=== PATIENT | female | born 1965 | race Caucasian/White ===

== ENCOUNTER 2019-11-26 13:07 | Emergency (ER) | payer OTHER ==
[~2019-11-26] VITALS: Ht 167.6 cm; Wt 90.0 kg
[~2019-11-26 13:07] MED LIST: ADVAIR DISK1 INH; AMOXICILLIN500 MG OR; CEPHALEXIN500 MG OR; CLARITIN10 M1 PO; FIORICET PO; FLEXERIL PO; FLEXERIL10 MG PO; GLIPIZIDE5 M1 PO; GLUCOTROL EXTE2.5 M1 PO; HYDROCHLOROT25 MG PO; LEVOTHYROXIN75 MC1 PO; LEVOTHYROXIN88 MCG PO; LEVOTHYROXINE112 MCG PO; LORTAB5 PO; MEDDOSEPAK PO; MELOXICAM7.5 MG PO; NAPROSYN500 MG OR; NAPROSYN500 MG PO; NO MEDS; PERCOCET 5/325M1 TAB PO; PROVENTIL HFA IN; ROBITUSSIN AC OR; ROBITUSSIN AC10 ML OR; ROBITUSSIN AC10 ML PO; TRAMADOL HCL50 MG PO; ULTRAM50 M1 PO; ULTRAM50 MG PO; ZPAK PO
[2019-11-26] MEDS ORDERED: CYCLOBENZAPR5 MG PO (15:07)
[2019-11-26 15:30] VITALS: BP 94/67
== END 2019-11-26 15:30 | disposition home or self-care (01) | DRG 552 ==
LOC: ED 13:07
DX: M54.2 Cervicalgia (principal); J44.9 Chronic obstructive pulmonary disease, unspecified; E11.9 Type 2 diabetes mellitus without complications; E03.9 Hypothyroidism, unspecified; F17.200 Nicotine dependence, unspecified, uncomplicated; V59.40XA Driver of pick-up truck or van injured in collision with unspecified motor vehicles in traffic accident, initial encounter; Z79.84 Long term (current) use of oral hypoglycemic drugs

== ENCOUNTER 2020-04-01 08:01 | Day surgery (SDC) | payer OTHER ==
[~2020-04-01] VITALS: Ht 167.6 cm; Wt 99.8 kg
[~2020-04-01 08:01] MED LIST changes: +ASPIRIN 81 LOW81 MG PO; +CYCLOBENZAPR5 MG PO
[2020-04-01 11:30] VITALS: BP 115/68
== END 2020-04-01 10:58 | disposition home or self-care (01) ==
LOC: ENDO 08:01
PROVIDERS: ATTEND Surgery
DX: Z12.11 Encounter for screening for malignant neoplasm of colon (principal); K63.5 Polyp of colon; Z20.828 Contact with and (suspected) exposure to other viral communicable diseases

== ENCOUNTER 2020-04-28 23:32 | Inpatient (IN) | payer OTHER ==
[~2020-04-28] VITALS: Ht 167.6 cm; Wt 98.7 kg
--- NOTE | 2020-04-28 23:42 | NUR ---
PT ARRIVED BY EMS, WITH COMPLAINT OF ABDOMINAL PAIN. PRIOR IV INSERTION BY EMS, 20G IN RAC. PT RESTING IN ROOM WITH COMPLAINT OF SEVERE PAIN TO ABDOMEN. WILL CONTINUE TO MONITOR.
[2020-04-28 23:59] LABS: HEMOGLOBIN 14.6 g/dl (12.0-16.0); IMMATURE GRANULOCYTES 1.5 % (0.0-5.0); MEAN CELL VOLUME 98.7 fL CALC (80.0-100.0); MEAN CORPUSCULAR HGB 30.7 pG CALC (26.0-32.0); MEAN CORPUSCULAR HGB CONC 31.1 g/dL CAL (32.0-36.0); RED BLOOD COUNT 4.76 mill/uL (4.20-5.60); RED CELL DISTRI WIDTH 14.3 % (11.5-15.5)
--- NOTE | 2020-04-29 00:10 | NUR ---
PT MEDICATED FOR PAIN AND NAUSEA, IV FLUIDS STARTED. WILL REASSESS IN 30 MINS.
[2020-04-29 00:18] LABS: ALBUMIN 3.5 g/dL (3.2-5.0); ALKALINE PHOSPHATASE 114 u/l (38-126); AMYLASE 40 u/l (30-110); ANION GAP 14 (6-22 (CALC)); BUN 20 mg/dL (7-17); BUN/CREATININE RATIO 22 (12-20 (CALC)); CARBON DIOXIDE 27 mmol/l (22-30); CHLORIDE 101 mmol/l (95-108); CREATININE 0.9 mg/dL (0.5-1.0); GFR > 60 ML/MIN (>=60 (CALC)); GFR FOR AFR.AMER. > 60 ML/MIN (>=60 (CALC)); LIPASE 26 u/l (23-300); POTASSIUM 4.4 mmol/l (3.5-5.1); SGOT/AST 18 u/l (14-36); SODIUM 137 mmol/l (137-146); TOTAL PROTEIN 6.7 g/dL (6.3-8.2)
[2020-04-29 00:19] LABS: MANUAL DIFFERENTIAL YES; PLATELET COUNT 305 thou/uL (130-400)
[2020-04-29 00:21] LABS: BILIRUBIN, TOTAL 1.7 mg/dL (0.0-1.4)
[2020-04-29 00:35] LABS: BAND 1 % (0-8)
--- NOTE | 2020-04-29 02:41 | NUR ---
PT MEDICATED WITH ABX. PT ALLOWED ICE CHIPS. PT APPEARS TO BE SLEEPING. WILL CONTINUE TO MONITOR.
--- NOTE | 2020-04-29 03:19 | NUR ---
PT'S FLUIDS AND IV MEDICATIONS ARE COMPLETE. PT APPEARS TO BE SLEEPING WITHOUT S/S OF DISCOMFORT.
--- NOTE | 2020-04-29 03:25 | NUR ---
REPORT CALLED TO [facility]. MED-SURG.
[2020-04-29 03:36] VITALS: BP 93/69
--- NOTE | 2020-04-29 03:36 | NUR ---
TO FLOOR VIA STRETCHER WITH COLBY ROWE.
--- NOTE | 2020-04-29 04:26 | NUR ---
PATIENT ADMITTED FROM ER VIA STRETCHER WITH ER STAFF IN ATTENDANCE. PATIENT IS BEING ADMITTED FOR CHOLECYSTITIS. PATIENT IS AWAKE ALERT AND ORIENTEDX3. PATIENT WITH HX OF STROKE 3 YEARS AGO WITH LEFT SIDED WEAKNESS. PATIENT ALSO STATES THAT SHE DOES HAVE SOME BALANCE PROBLEMS. PATIENT DENIES ANY COVID SX. STATES THAT SHE HAS BEEN HAVING PAIN AND NAUSEA FOR LAST COUPLE OF DAYS. POOR APPETITE-NOT EATING DUE TO NAUSEA. NPO AT THIS TIME. IV SITE TO RIGHT AC-IVF NS HUNG AND INFUSING AT 125CC/HR. SITE IS HEALTHY AT THIS TIME. LAST BM WAS 04/28/20. DENIES ANY DIFFICULTY WITH URINATION. INSTRUCTED PATIENT THAT WE DO NEED UROINE SPEC WHEN SHE IS ABLE TO PROVIDE. ABD IS SOFT WITH BS+. LUNGS ARE CLEAR. PATIENT ORIENTED TO ROOM AND SURROUNDINGS. INSTRUCTED ON USE OF NURSE CALL LIGHT SYSTEM, TV REMOTE AND PHONE. SAFETY PRECAUTIONS REVIEWED WITH PATIENT. CALL LIGHT IN REACH. WILL CONT TO MONITOR.
[2020-04-29 07:24] VITALS: BP 99/65
--- NOTE | 2020-04-29 07:24 | NUR ---
PT RESTING IN BED, NO SIGNS OF DISTRESS NOTED, RESP EVEN AND UNLABORED. DISCUSSED POC, PT ALERT AND ORIENTED X3, PT IS NPO, ASSESSMENT COMPLETED, CALL LIGHT IN REACH, CONTINUE TO MONITOR.
[2020-04-29 08:10] LABS: URINE BLOOD DIPSTICK MODERATE (NEGATIVE); URINE GLUCOSE - DIPSTICK 100 mg/dL (NEGATIVE); URINE KETONE NEGATIVE (NEGATIVE); URINE LEUK ESTERASE NEGATIVE (NEGATIVE); URINE PROTEIN - DIPSTICK TRACE mg/dL (NEG-TRACE); URINE UROBILINOGEN - DIPSTICK >=8.0 E.U./dL (0.2)
[2020-04-29 08:16] LABS: URINE BILIRUBIN - DIPSTICK MODERATE (NEGATIVE); URINE COLOR DK. YELLOW; URINE NITRITE - DIPSTICK POSITIVE (Negative)
[2020-04-29 08:17] LABS: URINE BACTERIA FEW hpf; URINE EPITHELIAL CELLS FEW EPI/hpf (0-FEW)
--- NOTE | 2020-04-29 08:23 | NUR ---
CALLED MD PAPER AND PULP MILL OPERATOR AND CLARIFIED FENTANYL ORDER, NEW ORDERS RECEIVED.
--- NOTE | 2020-04-29 08:42 | NUR ---
CONSENT OBTAINED, SWABS TO MOISTEN HER MOUTH PROVIDED.
--- NOTE | 2020-04-29 09:14 | NUR ---
PT TAKEN DOWN TO OR WITH OR NURSE, CONTINUE TO MONITOR.
--- NOTE | 2020-04-29 10:00 | NUR ---
PT BROUGHT BACK TO FLOOR VIA BED ACCOMPANIED BY OR NURSE, CALL LIGHT IN REACH, WATER PROVIDED, CALL LIGHT IN REACH,CONTINUE TO MONITOR.
--- NOTE | 2020-04-29 11:38 | NUR ---
PT RESTING IN BED, MEDICATED FOR PAIN, CALL LIGHT IN REACH,CONTINUE TO MONITOR.
--- NOTE | 2020-04-29 13:01 | NUR ---
PT RESTING IN BED WITH EYES CLOSED, NO SIGNS OF DISTRESS NOTED, RESP EVEN AND UNLABORED. CALL LIGHT IN REACH,CONTINUE TO MONITOR.
[2020-04-29 14:40] VITALS: BP 95/58
--- NOTE | 2020-04-29 17:19 | NUR ---
PT SITTING ON SIDE OF BED, PT MEDICATED PER MAR. CALL LIGHT IN REACH,CONTINUE TO MONITOR.
[2020-04-29 19:00] VITALS: BP 114/73
--- NOTE | 2020-04-29 19:19 | NUR ---
PATIENT SITTING UP ON THE SIDE OF THE BED. AWAKE ALERT AND ORIENTEDX3. PATIENT WITH NO COMPLAINTS AT THIS TIME. IV SITE TO RAC INTACT WITH NS PATENT AND INFUSING 125CC/HR. SAFETY PRECAUTIONS REINFORCED. CALL LIGHT IN REACH. WILL CONT TO MONITOR.
--- NOTE | 2020-04-29 21:00 | NUR ---
PATIENT MIN ASSIST TO BR AND TOOK PRE-OP SHOWER USING ANTIBACTERIAL SCRUB. PATIENT WITH LEFT SOIDED WEAKNESS FROM PREVIOUS STROKE. BACK TO BED. CALL LIGHT IN REACH. SAFETY PRECAUTIONS REINFORCED. WILL CONT TO MONITOR.
--- NOTE | 2020-04-29 23:30 | NUR ---
PATIENT RESTING IN BED AT THIS TIME. O2 VIA NASAL CANNULA IN PLACE. IVF NS PATENT AND INFUSING AT 100CC/HR VIA RAC SITE. ZOSYN HUNG ORDERED. MEDICATED FOR RLQ PAIN WITH PERCOCET 5/325MG PO AND WITH TORADOL 15MG SCHDULED. NPO AFTER MIDNIGHT. PATIENT VERBALIZES UNDERSTANDING. SAFETY PRECAUTIONS REINFORCED. CALL LIGHT IN REACH. WILL CONT TO MONITOR.
--- NOTE | 2020-04-30 03:49 | NUR ---
PATIENT RECIEVED NEB TYREATMENT ORDERED. COUGHING UP MODERATE AMT OF THIN CLEAR SECREATIONS. PATIENT ASSIST TO THE BR-WALKS WITH LIMP TO LLE. LIMITED MOVEMENT OF LEFT HAND. VOIDED QS IN BR AND ASSISTED BACK TO THE BED. PATIENT REMAINS NPO FOR OR THIS MORNING. IVF NS PATENT AND INFUSING AVIA RAC SITE AT 100CC/HR. SITE REMAINS HEALTHY, SITTING ON THE SIDE OF THE BED WATCHING TV AT THIS TIME. CALL LIGHT IN REACH. SAFETY PRECAUTIONS REINFORCED. WILL CONT TO MONITOR.
[2020-04-30 04:00] VITALS: BP 108/74
[2020-04-30 05:31] LABS: MEAN CELL VOLUME 100.8 fL CALC (80.0-100.0); MEAN CORPUSCULAR HGB 30.6 pG CALC (26.0-32.0); MEAN CORPUSCULAR HGB CONC 30.4 g/dL CAL (32.0-36.0); RED BLOOD COUNT 3.89 mill/uL (4.20-5.60); RED CELL DISTRI WIDTH 14.6 % (11.5-15.5)
[2020-04-30 05:45] LABS: HEMATOCRIT 39.2 % (37.0-47.0); HEMOGLOBIN 11.9 g/dl (12.0-16.0)
[2020-04-30 05:47] LABS: TOTAL PROTEIN 5.8 g/dL (6.3-8.2)
[2020-04-30 05:48] LABS: BILIRUBIN, TOTAL 0.7 mg/dL (0.0-1.4)
[2020-04-30 05:50] LABS: ANION GAP 14 (6-22 (CALC)); BUN 19 mg/dL (7-17); BUN/CREATININE RATIO 33 (12-20 (CALC)); CARBON DIOXIDE 25 mmol/l (22-30); CHLORIDE 104 mmol/l (95-108); CREATININE 0.6 mg/dL (0.5-1.0); GFR > 60 ML/MIN (>=60 (CALC)); GFR FOR AFR.AMER. > 60 ML/MIN (>=60 (CALC)); MAGNESIUM 2.6 mg/dL (1.6-2.3); SODIUM 139 mmol/l (137-146)
[2020-04-30 07:45] VITALS: BP 102/63
--- NOTE | 2020-04-30 07:45 | NUR ---
PATIENT NPO AT THIS TIME ALERT AND ORIENTED. DENIES ANY PAIN CURRENTLY AT THIS TIME. 02 ON AT 3 LITERS. SIDERAILS UP X 2 CALL LIGHT WITHIN REACH. CASINO MANAGER DONE AT THIS TIME (SEE INTERVENTIONS).
--- NOTE | 2020-04-30 12:00 | NUR ---
PATIENT SITTING UP ON BEDSIDE EATING LUNCH AT THIS TIME. PATIENT STATES HER PAIN LEVEL IS A 3 OUT OF 0-10 AND WAS GIVEN 15MG TORODOL PER SCHEDULE. PATIENT DENIES ALL OTHER NEEDS AT THIS TIME. PATIENT WILL BE MADE NPO AFTER MIDNIGHT TONIGHT FOR LAP JON TOMORROW. PATIENT AWARE OF SURGERY SCHEDULE CHANGE AT THIS TIME.
[2020-04-30 15:00] VITALS: BP 99/57
--- NOTE | 2020-04-30 16:15 | NUR ---
PATIENT LAYING IN BED AT THIS TIME DENIES ANY NEEDS AND OR PAIN. PATIENT SIDERAILS ARE UP X 2 CALL LIGHT WITHIN REACH.
[2020-04-30 20:00] VITALS: BP 98/60
--- NOTE | 2020-04-30 20:02 | NUR ---
PHYSICAL ASSESMENT COMPLETE. PT CURRENTLY DENIES PAIN OR DISCOMFORT. SCHEDULED MEDICATIONS AND PRN MEDICATION ADMINISTERED, SEE E-MAR. PT DENIES ANY NEEDS AT THIS TIME. PLAN OF CARE REVIEWED, PT DENIES QUESTIONS, VERBALIZES UNDERSTANDING. ITEMS WITHIN REACH, BED LOCKED IN LOW POSITION W/ BEDRAILS UP X2. CALL LOPEZ WITHIN REACH, AGREES TO CALL PRN.
--- NOTE | 2020-04-30 21:00 | NUR ---
PT REQUESTED SLEEP AID. WILL REQUEST FROM PHYSICIAN.
[2020-05-01] VITALS (10 sets, daily range): BP systolic 88–143; BP diastolic 54–88
--- NOTE | 2020-05-01 | NUR ---
PT LAYING IN BED WITH EYES CLOSED, APPEARS TO BE SLEEPING, APPEARS COMFORTABLE AND IN NO DISTRESS. RESPIRATIONS REGULAR AND UNLABORED. ANTIBIOTIC AND SCHEDULED TORADOL PROVIDED. ITEMS REMAIN WITHIN REACH, CALL LOPEZ REMAINS WITHIN REACH. BED REMAINS LOCKED AND IN LOW POSITION WITH BEDRAILS UP X2. WILL CONTINUE TO MONITOR.
--- NOTE | 2020-05-01 04:14 | NUR ---
PT RESTING IN BED, NO SIGNS OF DISTRESS NOTED, RESP EVEN AND UNLABORED. PT VOICES NO NEEDS OR COMPLAINTS AT THIS TIME. CALL LIGHT IN REACH, CONTINUE TO MONITOR.
[2020-05-01 05:55] LABS: HEMATOCRIT 37.1 % (37.0-47.0); HEMOGLOBIN 11.3 g/dl (12.0-16.0); IMMATURE GRANULOCYTES 0.9 % (0.0-5.0); MEAN CELL VOLUME 100.8 fL CALC (80.0-100.0); MEAN CORPUSCULAR HGB 30.7 pG CALC (26.0-32.0); MEAN CORPUSCULAR HGB CONC 30.5 g/dL CAL (32.0-36.0); NEUT# 16.7 thou/uL (2.00-7.15); RED BLOOD COUNT 3.68 mill/uL (4.20-5.60); RED CELL DISTRI WIDTH 14.6 % (11.5-15.5)
[2020-05-01 06:21] LABS: ALBUMIN 2.7 g/dL (3.2-5.0); ALKALINE PHOSPHATASE 98 u/l (38-126); ANION GAP 10 (6-22 (CALC)); BUN 17 mg/dL (7-17); BUN/CREATININE RATIO 31 (12-20 (CALC)); CARBON DIOXIDE 26 mmol/l (22-30); CHLORIDE 107 mmol/l (95-108); CREATININE 0.5 mg/dL (0.5-1.0); GFR > 60 ML/MIN (>=60 (CALC)); GFR FOR AFR.AMER. > 60 ML/MIN (>=60 (CALC)); POTASSIUM 4.2 mmol/l (3.5-5.1); SGOT/AST 18 u/l (14-36); SODIUM 139 mmol/l (137-146); TOTAL PROTEIN 5.3 g/dL (6.3-8.2)
[2020-05-01 06:22] LABS: BILIRUBIN, TOTAL 0.4 mg/dL (0.0-1.4)
--- NOTE | 2020-05-01 07:00 | NUR ---
PATIENT RESTING IN BED AT THIS TIME STATES HER PAIN IS A 2 OUT OF PAIN SCALE OF 0-10. DENIES ANY OTHER NEEDS. 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 VITAL SIGNS TAKEN AND ENCEPHALOGRAPHER DONE SEE (INTERVENTIONS). 02 ON AT 2 LITERS LUNGS SOUND ARE DIMINISHED IN LOWER BOWERS. NON PRODUCTIVE COUGH (DRY) NOTED. SIDERAILS ARE UP CALL LIGHT WITHIN REACH.
--- NOTE | 2020-05-01 10:08 | NUR ---
PT IN OR CURRENTLY. NO AEROSOL NEB TX ADMINISTERED AT THIS TIME. AWARE.
--- NOTE | 2020-05-01 12:18 | NUR ---
PATIENT RETURNED FROM SURGERY WITH JAE MANE. PATIENT WAS ASSISTED BACK TO BE AT THIS TIME. PATIENT HAS 4 DERMABOND CLOSE SURGERY SITES AND 1 ESSENCE DRAIN ON THE RIGHT ABDOMINAL WALL THAT IS DRAINING RED TINGED DRAINAGE AT THIS TIME. PRIOR TO LEAVING RETAIL SALES ASSOCIATE BILINGUALJAE ASH STATED SHE EMPTIED 100 ML FROM ESSENCE DRAIN BULB. PATIENT INSTRUCTED TO CALL FOR ASSISTANCE IF SHE NEEDS TO GET UP PATIENT ALSO GIVEN ICE CHIPS AND VITAL SIGNS ARE STABLE AT THIS TIME. NALDO UNDERWOOD ARE UP X2 CALL LIGHT WITHIN REACH.
--- NOTE | 2020-05-01 13:32 | NUR ---
PATIENT GIVEN 1 OXYCODONE-ACETAMINIIOPHEN 5MG/325MG FOR PAIN IN ABDOMINAL AREA. PATIENT STATES HER PAIN IS A 6 OUT OF A SCALE OF 0-10 AT THIS TIME. PATIENT GIVEN A PILLOW FOR ABD. FOR SUPPORT AND AN INSENTIVE SPIROMETER WAS GIVEN AND PATIENT VERBALIZES UNDERSTANDING OF USE AND BENEFITS. SIDERAILS ARE UP CALL LIGHT WITHIN REACH.
--- NOTE | 2020-05-01 13:41 | NUR ---
PT REFUSED AEROSOLIZED NEB TX AT THIS TIME. STATES SHE JUST HAD PAIN MED AND IS TRYING TO NAP. "MY BREATHING IS DOING FINE RIGHT NOW". NAD. VSS. GRADUATE TEACHING ASSOCIATE TO MONITOR.
--- NOTE | 2020-05-01 14:44 | NUR ---
PATIENT RESTING IN BED AT THIS TIME ADOMINAL DERMABOND SITES REMAIN INTACT NO DRAINAGE NOTED AT THIS TIME FROM ANY OF THE FOUR SITES. ESSENCE DRAIN INTACT AND CONTINUES TO HAVE SMALL AMOUNT OF REDDISH FLUIDS COLLECTING IN BULB AT THIS TIME PATIENT STATES PAIN MEDICATIION EFFECTIVE AT THIS TIME. PAIN IS A 3 DOWN FROM A 6 LEVEL OUT OF 0-10 SCALE. SIDERAILS UP CALL LIGHT WITHIN REACH.
--- NOTE | 2020-05-01 16:07 | NUR ---
ASSISTED PATIENT UP TO BATHROOM AT THIS TIME. PATIENT VOIDED 325 ML'S OF URINE CLEAR YELLOW AT THIS TIME. PATIENT'S ESSENCE DRAIN WAS DRAINED AND 30 ML'S OF BLOODY DRAINAGE WAS EMPTIED. PATIENT THEN WALKED BACK TO SIT IN RECLINER AND ABDOMINAL AREA EXAMIED AND FOUR DERMABOND SITES ON ABDOMINAL WALL REMAIN INTACT AND WITHOUT DRAINAGE. ESSENCE DRESSING REMAINS INTACT AND DRY AT THIS TIME. PATIENT STATED PAIN LEVEL IS 3 OUT OF PAIN SCALE OF 0-10 AND STATED FEELS BETTER SITTING UP. PATIENT HANDED CALL LIGHT AND TRAY TABLE NEAR BY AND EDUCATED TO CALL FOR HELP IF SHE NEEDS TO GET UP. PATIENT VERBALIZES UNDERSTANDING.
--- NOTE | 2020-05-01 17:37 | NUR ---
15MG OF TORODOL GIVEN SCHEDULED PATIENT STATES HE PAIN IS ABOUT A "3" OUT OF A PAIN SCALE OF 0-10. PATIENT SITTING UP IN CHAIR WITH SCD'S ON AT THIS TIME EATING MEAL FROM [employer]. CHRISTY ANY PAIN. CALL LIGHT WITHIN REACH
--- NOTE | 2020-05-01 18:00 | NUR ---
PATIENT STATES PAIN CURRENTLY IS ONLY A 1-2 AND FEELS TOLERABLE. DENIES ALL OTHER NEEDS.
[2020-05-01 18:48] LABS: HEMATOCRIT 38.8 % (37.0-47.0); HEMOGLOBIN 11.6 g/dl (12.0-16.0)
--- NOTE | 2020-05-01 20:39 | NUR ---
PT MEDICATED ORDERS PROVIDE NO S/O DISTRESS NOTED. ESSENCE DRAIN MAINTAINS GOOD BULB SUCTION WITH MINIMAL RED DRAINAGE. ABD INCISION LAP SITES APPEAR CDI. PT REPORTS PAIN 5/10 ON PAIN SCALE, WILL MEDICATE FOR PAIN AND ASKING FOR SLEEP AIDE. SNACK PROVIDED PER REQUEST. ENCOURAGED TO CALL NEEDS ARISE.
--- NOTE | 2020-05-01 20:49 | NUR ---
MEDICATED FOR PAIN 5/10 ON PAIN SCALE. SHE IS WATCHING TV AND EATING A SNACK WHEN I LEFT.
--- NOTE | 2020-05-01 21:40 | NUR ---
PT CALLED TO ASK IF WE HAD ANYONE ON STAFF TO BRAID HER HAIR. WE INFORMED HER THAT WE DID NOT, BUT PROVIDED WITH RUBBERBAND. DENIES ANY OTHER NEEDS AT THIS TIME.
[2020-05-02] VITALS: BP 103/64
--- NOTE | 2020-05-02 00:22 | NUR ---
PT MEDICATED WITH IV ANTIBIOTIC THERAPY AND IV PAIN MEDICATION AT THIS TIME PER SCEDULED MEDICATIONS. PT REPORTS PAIN LEVEL 3/10 ON PAIN SCALE. SHE AMBULATED TO RESTROOM AND REPORTS PASSING GAS. PT DEMONSTRATED IS USAGE WITH BREATHS MEASURING 1000 ON IS. SHE WAS LEFT SITTING ON SIDE OF THE BED WITH LIGHTS OFF AND TV ON. DENIES ANY OTHER NEEDS. OXYGEN IS OFF, SAT LEVELS 92% ON ROOM AIR.
--- NOTE | 2020-05-02 01:37 | NUR ---
IV ANTIBIOTIC THERAPY COMPLETED AT THIS TIME. IV SITE FLUSHED WITH NS/PATENT AND APPEARS HEALTHY. PT AWAKE, WATCHING TV.
[2020-05-02 04:00] VITALS: BP 102/63
--- NOTE | 2020-05-02 04:27 | NUR ---
ASSISTED PT BACK INTO BED, SHE SELF AMBULATED TO RESTROOM. LAB WAS IN WITH PT ALSO. SCD'S PLACED BACK ON PT AND ESSENCE DRAIN EMPTIED OF 20CC OF BLOODY RED DRAINAGE. REPORTS PAIN 4/10 ON PAIN SCALE. WILL FOLLOW-UP WITH PAIN MEDICATION AND ANTIBIOTIC THERAPY.
[2020-05-02 05:19] LABS: HEMATOCRIT 36.1 % (37.0-47.0); HEMOGLOBIN 10.9 g/dl (12.0-16.0)
[2020-05-02 05:36] LABS: ALBUMIN 2.5 g/dL (3.2-5.0); BILIRUBIN, TOTAL 0.3 mg/dL (0.0-1.4); TOTAL PROTEIN 4.8 g/dL (6.3-8.2)
[2020-05-02 07:00] VITALS: BP 110/62
--- NOTE | 2020-05-02 07:00 | NUR ---
PATIENT SITTING UP IN CHAIR AT THIS TIME STATES SHE FEELS GOOD AND HER PAIN LEVEL IS A 1 AT THIS TIME. CHARU ANY NEEDS NO O2 ON AT THIS TIME. ESSENCE DRAIN PATENT AND SMALL AMOUNT NOTED IN BULB AT THIS TIME (RED BLOOD TINGED). CALL LIGHT WITHIN REACH.
--- NOTE | 2020-05-02 11:48 | NUR ---
PATIENT SITTING UP IN CHAIR AT THIS TIME DENIES ANY PAIN STATES IT IS A "0" OUT OF PAIN SCALE OF 0-10. CALL LIGHT WITHIN REACH.
[2020-05-02 16:05] VITALS: BP 107/69
--- NOTE | 2020-05-02 16:15 | NUR ---
PATIENT RESTING IN BED AT THIS TIME SCDS ON DENIES ANY PAIN. ESSENCE DRAIN HAS MININAL RED DRAINAGE AT ABDOMINAL WALL SURGICAL SITES INTACT AND WITHOUT S/S OF INFECTIONS AT THIS TIME. PATIENT DENIES PAIN STATES IT IS A "0" CURRENTLY. SIDERAILS UP X 2 CALL LIGHT WITHIN REACH.
[2020-05-02 19:50] VITALS: BP 107/67; BP 83/49
--- NOTE | 2020-05-02 19:54 | NUR ---
PT MEDICATED ORDERS PROVIDE NO S/O DISTRESS NOTED. PT JUST RETURNING TO THE BED FROM RESTROOM SELF AMBULATING/STABLE. SCD'S REPLACED. PT MEDICATED FOR PAIN AT THIS TIME 5/10 ON PAIN SCALE. ESSENCE DRAIN HAS GOOD BULB SUCTION W/SCANT AMOUNT OF BLOODY DRAINAGE. ABD INCISIONS APPEAR CDI.
[2020-05-02 20:28] VITALS: BP 103/56
--- NOTE | 2020-05-03 00:08 | NUR ---
PT WAS SLEEPING WHEN I ENTERED THE ROOM, AWOKE TO MY VOICE. PT MEDICATED SCHEDULED MEDICATION ORDERS PROVIDE. NO S/O DISTRESS NOTED. LIGHTS ARE OUT AND TV ON. IV ANTIBIOTIC THERAPY ADMINISTERED AT THIS TIME.
[2020-05-03 01:08] VITALS: BP 111/70
[2020-05-03 04:00] VITALS: BP 128/88
--- NOTE | 2020-05-03 05:29 | NUR ---
PT MEDICATED ORDERS PROVIDE AND COFFEE PROVIDE. SHE IS AWAKE AND WATCHING TV
--- NOTE | 2020-05-03 05:43 | NUR ---
RESP IN WITH PT AT THIS TIME.
--- NOTE | 2020-05-03 06:52 | NUR ---
PT IS ASKING WHEN DR. ALVES WILL BE COMING TO SEE HER TODAY. I EXPLAINED THAT I DID NOT HAVE HIS SCHEDULE. SHE STATED THAT SHE EXPECTED HIM TO COME SEE HER YESTERDAY TO CLEAR HER FOR DC. SHE ASKED IF WE COULD CALL HIM TO CLEAR HER FOR DISCHARGE. INFORMING DAY NURSE.
[2020-05-03 07:25] VITALS: BP 128/72
--- NOTE | 2020-05-03 07:25 | NUR ---
PATIENT SITTING UP IN CHAIR AT THIS TIME WITH SCD ON. PATIENT DENIES ANY PAIN AND RATES HER PAIN A "0" OUT OF A PAIN SCALE OF 0-10. ABDOMINAL DERMA SAMUEL SITES ARE APPROXIMATED AND INTACT AND WITHOUT S/S OF INFECTION AT THIS TIME. ESSENCE DRAIN PATENT AND SMALL AMT. OF RED TINGED DRAINAGE NOTED. CALL LIGHT IS WITHIN REACH AT THIS TIME. PATIENT DENIES ANY OTHER NEEDS.
[2020-05-03] MEDS ORDERED: PERCOCET 5/325M1 TAB PO (08:10)
--- NOTE | 2020-05-03 08:44 | NUR ---
ESSENCE DRAIN PULLED AT THIS TIME USING ASCEPTIC TECHNIQUE. 1 STITCH REMOVED AND DRAINED PULLED AND DRAIN LINE ALL INTACT. AREA CLEANED AT THIS TIME AND 2X2 APPLIED WIHT OPT SITE APPLIED. PATIENT ADVISED THAT SHE CAN REMOVE DRESSING WHEN SHE GETS HOME TO SHOWER. PATIENT VERBALIZES UNDERSTANDING.
--- NOTE | 2020-05-03 09:55 | NUR ---
PATIENT D/C AT THIS TIME PATIENT GIVEN DATE TO FOLLOW UP WIMARY PRADO FOR , AT 11:00 PATIENT UNDERSTANDS ALL D/C INSTRUCTIONS.
--- NOTE | 2020-05-03 10:36 | NUR ---
Discharge instructions given. Patient verbalizes understanding of same. Discharged in stable condition via Wheelchair to Home with friend. All belongings sent with pt.
== END 2020-05-03 10:36 | disposition home or self-care (01) | DRG 418 ==
LOC: ED 23:32 → ED-I 04-29 01:56 → ED 04-29 02:09 → MS2 04-29 02:10
PROVIDERS: Family Medicine; Nurse Practitioner; Physician Assistant; ADMIT Surgery; ATTEND Surgery
PROC: 0FT44ZZ Resection of Gallbladder, Percutaneous Endoscopic Approach (ICD-10-PCS; principal; 2020-05-01)
DX: K80.00 Calculus of gallbladder with acute cholecystitis without obstruction (principal); I69.954 Hemiplegia and hemiparesis following unspecified cerebrovascular disease affecting left non-dominant side; J44.1 Chronic obstructive pulmonary disease with (acute) exacerbation; K82.A1 Gangrene of gallbladder in cholecystitis; I10 Essential (primary) hypertension; E11.9 Type 2 diabetes mellitus without complications; E03.9 Hypothyroidism, unspecified; F32.9 Major depressive disorder, single episode, unspecified; G47.30 Sleep apnea, unspecified; F17.200 Nicotine dependence, unspecified, uncomplicated; E66.01 Morbid (severe) obesity due to excess calories; Z68.35 Body mass index [BMI] 35.0-35.9, adult; Z86.010 Personal history of colon polyps; Z20.822 Contact with and (suspected) exposure to COVID-19
CPT/HCPCS: J0131; J1100; J2710; Q9967

== ENCOUNTER 2021-04-25 14:02 | Emergency (ER) | payer OTHER ==
[~2021-04-25] VITALS: Ht 167.6 cm; Wt 75.0 kg
[2021-04-25 15:24] LABS: IMMATURE GRANULOCYTES 0.9 % (0.0-5.0); MEAN CELL VOLUME 102.1 fL CALC (80.0-100.0); MEAN CORPUSCULAR HGB 30.7 pG CALC (26.0-32.0); NEUT# 9.71 thou/uL (2.00-7.15); RED BLOOD COUNT 4.66 mill/uL (4.20-5.60); RED CELL DISTRI WIDTH 14.9 % (11.5-15.5)
[2021-04-25 15:27] LABS: HEMATOCRIT 47.6 % (37.0-47.0); HEMOGLOBIN 14.3 g/dl (12.0-16.0)
[2021-04-25 15:36] LABS: ALKALINE PHOSPHATASE 79 u/l (38-126); BUN 7 mg/dL (7-17); BUN/CREATININE RATIO 15 (12-20 (CALC)); CHLORIDE 99 mmol/l (95-108); CREATININE 0.5 mg/dL (0.5-1.0); GFR > 60 ML/MIN (>=60 (CALC)); GFR FOR AFR.AMER. > 60 ML/MIN (>=60 (CALC)); POTASSIUM 3.9 mmol/l (3.5-5.1); SGOT/AST 45 u/l (14-36); SODIUM 137 mmol/l (137-146)
[2021-04-25 15:39] LABS: ANION GAP 8 (6-22 (CALC)); BILIRUBIN, TOTAL 0.8 mg/dL (0.0-1.4); CARBON DIOXIDE 34 mmol/l (22-30); TOTAL PROTEIN 7.9 g/dL (6.3-8.2)
[2021-04-25 17:15] VITALS: BP 103/57
[2021-04-25] MEDS ORDERED: ZPAK PO (17:31)
[2021-04-25] MEDS ORDERED: PROAIR HFA108 MCG/AC PO (17:31)
[2021-04-25] MEDS ORDERED: PREDNISONE50 MG PO (17:31)
== END 2021-04-25 17:18 | disposition left against medical advice (07) ==
LOC: ED 14:02 → ED-I 17:00 → ED 17:18
PROVIDERS: Family Medicine
DX: J44.1 Chronic obstructive pulmonary disease with (acute) exacerbation (principal); J06.9 Acute upper respiratory infection, unspecified; I10 Essential (primary) hypertension; E66.01 Morbid (severe) obesity due to excess calories; E11.9 Type 2 diabetes mellitus without complications; F17.200 Nicotine dependence, unspecified, uncomplicated; F32.A Depression, unspecified; Z86.73 Personal history of transient ischemic attack (TIA), and cerebral infarction without residual deficits; Z91.19 Patient's noncompliance with other medical treatment and regimen; Z68.26 Body mass index [BMI] 26.0-26.9, adult; Z20.822 Contact with and (suspected) exposure to COVID-19